=== PATIENT | male | born 2005 | race Two or more races ===

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

== ENCOUNTER 2023-06-05 21:36 | Emergency (ER) | payer MEDICAID ==
[~2023-06-05] VITALS: Ht 177.8 cm; Wt 54.0 kg
[2023-06-05 22:26] VITALS: BP 143/70; PULSE 81; RESP 12; TEMP 98.3
== END 2023-06-06 09:05 | disposition left against medical advice (07) ==
LOC: ER 21:36
DX: Z53.21 Procedure and treatment not carried out due to patient leaving prior to being seen by health care provider (principal)
CPT/HCPCS: 99281